=== PATIENT | female | born 1955 | race American Indian/Alaskan Native ===

== ENCOUNTER 2018-01-30 10:35 | Outpatient (CLI) | payer BC ==
--- NOTE | 2018-01-30 14:25 | Mammography Report ---
BILATERAL DIGITAL SCREENING MAMMOGRAM with CAD: 01/30/18 10:35:00 CLINICAL: Routine screening. COMPARISON:None available. Her last mammogram was over ten years ago. FINDINGS: The breasts are almost entirely fatty.A heavily calcified right upper outer periareolar benign fibroadenoma. No other mass, architectural distortion or suspicious calcifications. IMPRESSION: No mammographic evidence of malignancy. BI-RADS CATEGORY: 2 -- Benign RECOMMENDATION: Routine mammographic screening in one year. COMMENT: Patient follow-up letters are generated by our [employer] application.
== END 2018-01-30 10:36 | disposition home or self-care (01) ==
LOC: MAMMO 10:35
DX: Z12.31 Encounter for screening mammogram for malignant neoplasm of breast (principal)
CPT/HCPCS: 77067